=== PATIENT | female | born 1955 | race Caucasian/White ===

== ENCOUNTER 2020-09-19 11:07 | Emergency (ER) | payer MEDICARE, SELFPAY ==
[2020-09-19 11:36] VITALS: BP 133/76; PULSE 90; RESP 16; TEMP 36.8; O2SAT 94; BMI 21.0
--- NOTE | 2020-09-19 11:43 | XR_ITS ---
WS: [id number] Right first toe, 2 views, 09/19/2020 Clinical Data: Pain Comparison: None. Findings: There are no fractures or dislocations. The soft tissues are normal. The joint spaces are unremarkabl e. XR/XR toe RT min 2V [id number] Impression: Negative right first toe.
--- NOTE | 2020-09-19 11:44 | W.ED.EXTPRO ---
HPI - Extremity Problem General: Chief complaint: Extremity Problem,Nontraumatic Stated complaint: RIGHT BIG TOE PAIN Time Seen by Provider: 09/19/20 11:39 History of Present Illness: HPI Narrative: This patient is a 65-year-old female who presents to the emergency department with complaint of right great toe pain. Patient denies any states she woke up this morning and the joint between her foot and her right great toe appears to be pain little red. States it hurts to bend the toe. Patient denies injury. MD Complaint: joint pain Onset (ago): hour(s) Pain Consistency: constant Location: right and toe (Great toe) Associated symptoms: Deny chest pain, fever(s) or rash Review of Systems General: Reports: 10 or more systems reviewed and unremarkable except in HPI and below Const: Denies: fever(s), chills, body aches or fatigue Eyes: Denies: change in vision or blurry vision ENMT: Denies: throat pain, hoarseness or mouth pain Card: Denies: chest pain, palpitations, irregular heart rhythm, edema, swelling of feet/ankles or lightheadedness Resp: Denies: dyspnea, productive cough, non-productive cough, wheezing or pain on inspiration GI: Denies: abdominal pain, nausea or vomiting : Denies: flank pain, difficulty voiding, dysuria, urinary frequency, urinary urgency or urinary hesitancy Musc: Reports: joint pain; Denies: neck pain, back pain, extremity pain, extremity swelling, joint swelling, joint redness, joint warmth or limited range of motion Skin/Breast: Denies: rash, pruritus, erythema or skin tenderness Neuro: Denies: headache(s), numbness in extremities or weakness in extremities Psych: Denies: anxiety or depression [facility] ED PFSH: Social History Smoking and tobacco status: current every day smoker Alcohol intake: current Alcohol intake frequency: 0-2 Drinks per Day Substance/Drug Use: never Physical Exam Const: COMMON NORMALS: no acute distress, average body habitus, patient oriented x3, no limitations, healthy appearing, alert and well nourished HENMT: COMMON NORMALS: normocephalic, atraumatic, hearing grossly normal bilaterally, external ears normal, EAC's normal, TM's normal bilaterally, Normal external nose present, Normal nasal mucous membranes and turbinates present, moist oral mucous membranes, oropharynx normal, dentition normal and gingiva normal HEAD & SCALP: normocephalic and atraumatic NOSE: Normal external nose present and Normal nasal mucous membranes and turbinates present EXTERNAL EAR: Yes external ears normal EXTERNAL AUDITORY CANAL: EAC's normal TYMPANIC MEMBRANE: TM's normal bilaterally Neck/C-Spine: COMMON NORMALS: full ROM, no lymphadenopathy, supple, no meningeal signs, no JVD, Thyroid normal and No carotid bruits THYROID: Thyroid normal Chest: COMMONS NORMALS: normal inspection of the chest, normal palpation of entire chest wall, normal inspection of the breasts and normal palpation of the breasts Breast/axilla inspection: Yes normal inspection of the breasts BREAST/AXILLA PALPATION: Yes normal palpation of the breasts Resp: COMMON NORMALS: normal respiratory effort, No retractions, No use of accessory muscles, clear to auscultation bilaterally and percussion normal AUSCULTATION: clear to auscultation bilaterally PERCUSSION: percussion normal Cardio: COMMON NORMALS: no JVD, regular rate, regular rhythm, S1 normal heart sound present, S2 normal heart sound present, No gallops present (Cardio), No clicks present (Cardio), No murmurs present (Cardio), No rub (Cardio) and Peripheral pulses 2+ throughout RATE: regular rate RHYTHM: regular rhythm HEART SOUNDS: S1 normal heart sound present and S2 normal heart sound present PERIPHERAL PULSES: Peripheral pulses 2+ throughout GI: COMMON NORMALS: Normal to inspection, nondistended, normoactive bowel sounds present, Soft to palpation, non-tender, No hepatosplenomegaly present, no masses and no bruits PALPATION: Yes Soft to palpation and Yes No hepatosplenomegaly present : COMMON NORMALS: Yes no CVA tenderness BLADDER/KIDNEY EXAM: Yes no CVA tenderness Back/Pelvis: COMMON NORMALS: no CVA tenderness, thoracic and lumbar spine normal to inspection, no thoracic nor lumbar tenderness, thoraco-lumbar ROM normal and straight leg raise negative bilaterally Extremity: COMMON NORMALS: normal to inspection, full ROM, capillary refill normal, no joint enlargement, no clubbing, cyanosis or edema, no calf tenderness and no pedal edema RIGHT LOWER EXTREMITY: Yes foot & digits (Gouty tophi right great joint) Right foot and digits: Yes inspection, Yes palpation and Yes tendon exam Neuro: COMMON NORMALS: patient oriented x3 SENSORIUM/ORIENTATION: Yes alert MENINGEAL SIGNS: Yes no meningeal signs Course Reevaluation(s): Reevaluation #1: Concerning for gout right great toe. Patient be placed on allopurinol and NSAIDs. Hard soled shoe. Patient instructed to follow-up with PCP in 2 to 3 days. Discussed low purine diet with patient states understanding Time: 12:01 Vital Signs: Vital signs: Vital Signs Temperature 98.3 F 09/19/20 11:36 Pulse Rate 90 09/19/20 11:36 Respiratory Rate 16 09/19/20 11:36 Blood Pressure 133/76 09/19/20 11:36 Pulse Oximetry 94 09/19/20 11:36 MDM - Extremity (Nontraumatic) Imaging Data^: Xray Ortho: Attestation: I personally reviewed and interpreted this imaging study as follows: My impression: No acute fracture seen. Discharge Plan Discharge Patient Disposition: Home Clinical Impression: Gout Condition: Stable Prescriptions: New diclofenac sodium 75 mg tablet,delayed release (DR/EC) 75 mg PO BID PRN (Reason: pain) Qty: 20 RF: 0 allopurinol 100 mg tablet 100 mg PO BID Qty: 20 RF: 0 Discharge Orders: Discharge ED (Routine); Ordered 09/19/20 Ordered By: Darrell Peterson Referrals: Isa Root, [facility] [employer] [Primary Care Provider] - Discharge Diet: Advance as tolerated Discharge Activity: Resume usual activity Patient Instructions: Opioid Safety Activity Restrictions/Additional Instructions: Rest ice elevate as needed. Take medications as instructed. Low purine diet. Coding Level of Care Code ED Flexographic Press Helper for Marcus Fwalexandra Exam Comprehensive
[2020-09-19 12:34] VITALS: BP 149/67; PULSE 82; O2SAT 98
== END 2020-09-19 12:35 | disposition home or self-care (01) ==
PROVIDERS: Emergency Provider Emergency Medicine; PCP Nurse Practitioner Family
DX: M10.9 Gout, unspecified (principal); F17.210 Nicotine dependence, cigarettes, uncomplicated
CPT/HCPCS: 73660; 99282

== ENCOUNTER 2021-10-09 17:10 | Emergency (ER) | payer MEDICARE, MEDICAID, SELFPAY ==
[2021-10-09] VITALS (7 sets, daily range): BP systolic 132–167; BP diastolic 70–89; PULSE 75–105; RESP 18–96; TEMP 37; O2SAT 18–98; BMI 19.3
--- NOTE | 2021-10-09 19:43 | ECG_ITS ---
[facility] Test Date: 2021-10-09 Pat Name: Cherelle Bustos Department: Room: Gender: Female [employer] Operator: : 1955 Requested By: Jonathon Roque Order Number: [id number] Patricia MD: López Cardoso M.D. Measurements Intervals [place] Rate: 77 P: 71 TX: 136 QRS: 70 QRSD: 77 T: 74 QT: 382 QTc: 433 Interpretive Statements SINUS RHYTHM SEPTAL MYOCARDIAL INFARCTION , PROBABLY OLD [40+ ms Q WAVE IN V1/V2] Compared to ECG 03/10/2017 02:05:17 No significant changes Electronically Signed On 10-10-2021 18:57:13 CDT by López Cardoso M.D. [email or web address]
--- NOTE | 2021-10-09 19:44 | CTR_ITS ---
PROCEDURE INFORMATION: Exam: CT Head Without Contrast Exam date and time: 10/09/2021 7:55 PM Age: 66 years old Clinical indication: Dizziness; Patient HX: Numbness and tingling in pentecostalism and above lt lip TECHNIQUE: Imaging protocol: Computed tomography of the head without contrast. Radiation optimization: All CT scans at this facility use at least one of these dose optimization techniques: automated exposure control; mA and/or kV adjustment per patient size (includes targeted exams where dose is matched to clinical indication); or iterative reconstruction. COMPARISON: CT head wo con* [id number] 03/10/2017 12:21 AM RADIATION DOSE METRICS: Total DLP (mGy-cm): 714.37 FINDINGS: Brain: Normal. No hemorrhage. Unremarkable white matter. No mass effect. Cerebral ventricles: No ventriculomegaly. Paranasal sinuses: Visualized sinuses are unremarkable. No fluid levels. Mastoid air cells: Visualized mastoid air cells are well aerated. Bones/joints: Unremarkable. No acute fracture. Soft tissues: Unremarkable. CT/CT head wo con* [id number] IMPRESSION: No acute intracranial abnormality.
--- NOTE | 2021-10-09 19:54 | ED_ITS ---
HPI - Dizziness General: Chief Complaint: Dizziness Stated Complaint: Jaw pain, head & Nech pain on right side, dizzy Time Seen by Provider: 10/09/21 19:43 History of Present Illness: HPI Narrative: 66-year-old female comes in today with complaints of right sided neck and jaw pain with headache. Patient reports symptoms on and off for over a month now. Patient was concerned due to some blurring of the vision today. Patient is alert and responds appropriate to questions. Patient appears nontoxic. No focal neural deficits are noted. NIH stroke scale is 0. Associated symptoms: Reports headache(s); Denies chest pain, nausea or vomiting Review of Systems General: Reports: 10 or more systems reviewed and unremarkable except in HPI and below Const: Denies: fever(s) Eyes: Reports: blurry vision ENMT: Reports: throat pain and dry mouth Card: Denies: chest pain Resp: Denies: dyspnea GI: Denies: nausea or vomiting : Denies: difficulty voiding Musc: Reports: neck pain Skin/Breast: Denies: rash Neuro: Reports: headache(s) and dizziness [facility] ED PFSH: Social History Smoking and tobacco status: current every day smoker Alcohol intake: current Alcohol intake frequency: 0-2 Drinks per Day Physical Exam Const: COMMON NORMALS: no acute distress and alert HENMT: COMMON NORMALS: normocephalic, atraumatic, TM's normal bilaterally and Normal nasal mucous membranes and turbinates present HEAD & SCALP: normocephalic and atraumatic NOSE: Normal nasal mucous membranes and turbinates present TYMPANIC MEMBRANE: TM's normal bilaterally MOUTH: Normal oral and palatal mucosa present THROAT: posterior oropharynx normal Neck/C-Spine: COMMON NORMALS: full ROM CAROTIDS: No Carotid tenderness present Resp: COMMON NORMALS: normal respiratory effort and clear to auscultation bilaterally AUSCULTATION: clear to auscultation bilaterally Cardio: COMMON NORMALS: regular rate and regular rhythm RATE: regular rate RHYTHM: regular rhythm GI: COMMON NORMALS: Soft to palpation and non-tender PALPATION: Yes Soft to palpation Back/Pelvis: COMMON NORMALS: thoracic and lumbar spine normal to inspection Extremity: COMMON NORMALS: normal to inspection Neuro: SENSORIUM/ORIENTATION: Yes alert Skin: COMMON NORMALS: no rashes or lesions noted NARRATIVE SKIN EXAM: Mild senile purpura GENERAL SKIN EXAM: no rashes or lesions noted Course Vital Signs: Vital signs: Vital Signs Temperature 98.6 F 10/09/21 17:16 Pulse Rate 88 10/09/21 20:30 Respiratory Rate 18 10/09/21 20:30 Blood Pressure 167/70 10/09/21 20:30 Pulse Oximetry 92 10/09/21 20:30 MDM - Dizziness Medical Decision Making 66-year-old female comes in today with complaints of right-sided headache. Patient reports it starts in the back of her neck and goes up into her right side of her head. Patient also reports some discomfort to her jaw. Patient is a dentulous. Patient reports some chronic medical problems with use of thyroid medications. Patient does drink alcohol occasionally and also smokes tobacco. On exam no focal neurodeficits were noted. Patient moves neck without difficulty. Respirations are even lungs are clear to auscultation. Abdomen soft nontender. Differential diagnosis includes but not limited to migraine headaches, carotid stenosis, intracranial mass. CT of the head was un remarkable. Patient was treated for headache with headache cocktail including Reglan, diphenhydramine, dexamethasone, and ketorolac. Recommend patient follow-up with primary care as needed. Case management was requested for referral to neurology for further evaluation. Lab Data : 10/09/21 20:06 10/09/21 20:[address] 10/09/21 19:44 IMPRESSION: No acute intracranial abnormality. Laboratory Results WBC 10.1 10^3/uL (4.0-10.0) H 10/09/21 20:06 RBC 4.10 10^6/uL (4.1-5.3) 10/09/21 20:06 Hgb 13.7 g/dL (11.5-15.3) 10/09/21 20:06 Hct 39.2 % (37.0-47.0) 10/09/21 20:06 MCV 95.6 fl (81-99) 10/09/21 20:06 MCH 33.4 pg (28.0-34.0) 10/09/21 20:06 MCHC 34.9 g/dL (30.0-36.0) 10/09/21 20:06 RDW 12.9 % (12.1-15.1) 10/09/21 20:06 Plt Count 246 10^3/cmm (130-400) 10/09/21 20:06 MPV 10.2 fL (7.4-10.4) 10/09/21 20:06 Neut % (Auto) 50.5 % 10/09/21 20:06 Lymph % (Auto) 37.0 % 10/09/21 20:06 [place] % (Auto) 9.3 % 10/09/21 20:06 Eos % (Auto) 2.3 % 10/09/21 20:06 Baso % (Auto) 0.6 % 10/09/21 20:06 Neut # (Auto) 5.10 10^3/uL (1.8-7.7) 10/09/21 20:06 Lymph # (Auto) 3.7 10^3/uL (0.8-4.8) 10/09/21 20:06 [place] # (Auto) 0.9 10^3/uL (0.2-0.9) 10/09/21 20:06 Eos # (Auto) 0.2 10^3/uL (0.0-0.8) 10/09/21 20:06 Baso # (Auto) 0.1 10^3/uL (0.0-0.1) 10/09/21 20:06 Nucleated RBC % (auto) 0 % 10/09/21 20:06 Nucleated RBCs # 0.0 /100WBC 10/09/21 20:06 Sodium 139 mmol/L (136-145) 10/09/21 20:06 Potassium 4.1 mmol/L (3.5-5.1) 10/09/21 20:06 Chloride 102 mmol/L (98-107) 10/09/21 20:06 Carbon Dioxide 24 mmol/L (22-29) 10/09/21 20:06 Anion Gap 17.1 (5-19) 10/09/21 20:06 BUN 9 mg/dL (8-23) 10/09/21 20:06 Creatinine 0.7 mg/dL (0.5-0.9) 10/09/21 20:06 GFR Calculation 83.7 mL/min (90-130) L 10/09/21 20:06 Glucose 90 mg/dL (65-115) 10/09/21 20:06 Calculated Osmolality 286 mOsm/kg (285-295) 10/09/21 20:06 Calcium 9.8 mg/dL (8.5-10.5) 10/09/21 20:06 Total Bilirubin 0.2 mg/dL (0.15-1.2) 10/09/21 20:06 AST 30 U/L (0-32) 10/09/21 20:06 ALT 21 U/L (0-33) 10/09/21 20:06 Alkaline Phosphatase 84 IU/L (35-105) 10/09/21 20:06 Troponin T Gen 5 ng/L 6 ng/L (0-10) 10/09/21 20:06 C-Reactive Protein 3.0 mg/L (0.0-4.9) 10/09/21 20:06 Total Protein 7.4 g/dL (6.6-8.7) 10/09/21 20:06 Albumin 4.3 g/dL (3.5-5.2) 10/09/21 20:06 Globulin 3.1 g/dL (1.3-4.6) 10/09/21 20:06 Urine Color Yellow (Yellow) 10/09/21 20:07 Urine Appearance Clear (CLEAR) 10/09/21 20:07 Urine pH 6.5 (5-7) 10/09/21 20:07 Ur Specific [place] 1.010 (1.005-1.030) 10/09/21 20:07 Urine Protein Neg (Negative) 10/09/21 20:07 Urine Glucose (UA) Norm (Normal) 10/09/21 20:07 Urine Ketones Negative (Negative) 10/09/21 20:07 Urine Blood Neg (Negative) 10/09/21 20:07 Urine Nitrate Negative (Negative) 10/09/21 20:07 Urine Bilirubin Neg (Negative) 10/09/21 20:07 Urine Urobilinogen Norm mg/dL (Negative) 10/09/21 20:07 Ur Leukocyte Esterase Negative (Negative) 10/09/21 20:07 EKG Data EKG 1: EKG interpretation date: 10/09/21 EKG interpretation time: 20:25 Prior EKG tracings: available for review Interpretation: EKG shows a sinus rhythm with a regular rate at [address] elevation or ectopy is noted. No significant changes are noted from prior exam 03/10/2017. Discharge Plan Discharge Patient Disposition: Home Clinical Impression: Headache Qualifiers: Headache type: unspecified Headache chronicity pattern: unspecified pattern Intractability: not intractable Qualified Code(s): R51.9 - Headache, unspecified Condition: Stable Prescriptions: No Action diclofenac sodium 75 mg tablet,delayed release (DR/EC) 75 mg PO BID PRN (Reason: pain) Qty: 20 0RF allopurinol 100 mg tablet 100 mg PO BID Qty: 20 0RF Discharge Orders: Discharge ED (Routine); Ordered 10/09/21 Ordered By: Jonathon Morales Referrals: Isa Root, HORTICULTURE SUPERINTENDENT [Primary Care Provider] - Discharge Diet: Usual diet Discharge Activity: Increase activity as tolerated Patient Instructions: General Headache (ED) Activity Restrictions/Additional Instructions: Drink plenty of fluids. Continue with routine medications as directed. Follow- up with primary care to discuss further options. I have placed a request for you to be referred to neurology for further evaluation of your headaches. Return to ER for new concerns. Coding Level of Care Code ED Commissioning Manager for Marcus Fwalexandra Exam Comprehensive
[2021-10-09 20:13] LABS: Add Urine Microscopic? NO; Charge for UA Resulting for Rev
[2021-10-09 20:22] LABS: Basophils # 0.1 10^3/uL (0.0-0.1); Basophils % 0.6 %; Eosinophils # 0.2 10^3/uL (0.0-0.8); Eosinophils % 2.3 %; Hematocrit 39.2 % (37.0-47.0); Hemoglobin 13.7 g/dL (11.5-15.3); Lymphocytes # 3.7 10^3/uL (0.8-4.8); Mean Corpuscular HGB Conc 34.9 g/dL (30.0-36.0); Mean Corpuscular Hemoglobin 33.4 pg (28.0-34.0); Mean Corpuscular Volume 95.6 fl (81-99); Mean Platelet Volume 10.2 fL (7.4-10.4); Monocytes # 0.9 10^3/uL (0.2-0.9); Monocytes % 9.3 %; Neutrophils % 50.5 %; Nucleated Red Blood Cells % 0 %; Platelet Count 246 10^3/cmm (130-400); Red Cell Distribution Width 12.9 % (12.1-15.1); White Blood Count 10.1 10^3/uL (4.0-10.0)
[2021-10-09 20:28] LABS: Blood Urine Neg (Negative); Glucose Urine UA Norm (Normal); Ketones Urine Negative (Negative); Nitrate Urine Negative (Negative); Protein Urine Neg (Negative); Urine Appearance Clear (CLEAR); Urine Color Yellow (Yellow); pH Urine 6.5 (5-7)
[2021-10-09 20:29] LABS: Bilirubin Urine Neg (Negative); Leukocyte Esterase Urine Negative (Negative); Urobilinogen Urine Norm (Negative)
[2021-10-09 20:37] LABS: Alanine Aminotransferase 21 U/L (0-33); Albumin Level 4.3 g/dL (3.5-5.2); Alkaline Phosphatase 84 IU/L (35-105); Aspartate Amino Transferase 30 U/L (0-32); Blood Urea Nitrogen 9 mg/dL (8-23); Calcium 9.8 mg/dL (8.5-10.5); Carbon Dioxide 24 mmol/L (22-29); Chloride 102 mmol/L (98-107); Globulin 3.1 g/dL (1.3-4.6); Glomerular Filtration Rate 83.7 mL/min (90-130); Glucose 90 mg/dL (65-115); Osmolality Calculated 286 mOsm/kg (285-295); Sodium 139 mmol/L (136-145); Total Bilirubin 0.2 mg/dL (0.15-1.2); Total Protein 7.4 g/dL (6.6-8.7)
[2021-10-09 20:38] LABS: Troponin T (5th) Once 6 ng/L (0-10)
[2021-10-09 20:39] LABS: Anion Gap 17.1 (5-19); Potassium 4.1 mmol/L (3.5-5.1)
[2021-10-09] MEDS: dexamethasone 4 mg/mL INJ 8 MG IVP (21:22)
[2021-10-09] MEDS: metoclopramide 5 mg/mL SDV 2 mL 10 MG IVP (21:22)
[2021-10-09] MEDS: ketorolac 30 mg/mL INJ 15 MG IVP (21:22)
[2021-10-09] MEDS: diphenhydrAMINE 50 mg/mL SDV 1mL 12.5 MG IVP (21:23)
[2021-10-09] MEDS: sodium chloride 0.9% 250 ML IV (21:23)
--- NOTE | 2021-10-15 08:01 | DCPLANNER ---
Addendum entered by Kenna Phillips 11/04/21 13:46: Patient had a follow up appointment scheduled for 11.04.[address] Boone - patient did attend appointment. Original Note: manager control had message to schedule a follow up appointment for patient with neurology. manager control sent patients information to the front office staff at neurology. Patients information will be printed and reviewed. Clinic will call patient with appointment information.
== END 2021-10-09 21:36 | disposition home or self-care (01) ==
PROVIDERS: Emergency Provider Nurse Practitioner Family; PCP Nurse Practitioner Family
DX: R51.9 Headache, unspecified (principal); F17.210 Nicotine dependence, cigarettes, uncomplicated
CPT/HCPCS: 70450; 80053; 81003; 84484; 85025; 86140; 93005; 96361; 96374; 96375; 99284; J1100; J1200; J1885; J2765; J7050

== ENCOUNTER → 2021-11-04 09:37 | Outpatient (BNVA) | payer MEDICARE, MEDICAID, SELFPAY | PROVIDERS: PCP Nurse Practitioner Family; Visit Provider Specialist | DX: G43.711 Chronic migraine without aura, intractable, with status migrainosus (principal); R20.0 Anesthesia of skin; R20.2 Paresthesia of skin; J44.9 Chronic obstructive pulmonary disease, unspecified; R01.1 Cardiac murmur, unspecified; F17.210 Nicotine dependence, cigarettes, uncomplicated | CPT/HCPCS: 82607; 84443; 85651; 86038; 99204; 99205 ==

== ENCOUNTER → 2022-01-02 13:10 | Outpatient (BNVA) | payer MEDICARE, MEDICAID, SELFPAY | PROVIDERS: PCP Family Medicine; Visit Provider Internal Medicine Cardiovascular Disease | DX: R01.1 Cardiac murmur, unspecified (principal); R22.0 Localized swelling, mass and lump, head; J43.1 Panlobular emphysema; G43.711 Chronic migraine without aura, intractable, with status migrainosus; E03.9 Hypothyroidism, unspecified; F17.219 Nicotine dependence, cigarettes, with unspecified nicotine-induced disorders | CPT/HCPCS: 99204 ==

== ENCOUNTER → 2022-01-23 11:43 | Outpatient (BNVA) | payer MEDICARE, MEDICAID, SELFPAY | PROVIDERS: PCP Family Medicine; Visit Provider Family Medicine | DX: Z13.6 Encounter for screening for cardiovascular disorders (principal) | CPT/HCPCS: 80053; 80061; 85025 ==

== ENCOUNTER 2022-02-25 12:47 | Outpatient (CLI) | payer MEDICARE, MEDICAID, SELFPAY ==
--- NOTE | 2022-02-25 13:00 | CT_ITS ---
WS: [id number] CT NECK TECHNIQUE: Contrast-enhanced CT of the neck with coronal and sagittal reformatted images. CLINICAL INFORMATION: ABSCESS OF SALIVARY GLAND/LOCALIZED SWELLING,MASS LUMP COMPARISON: None. DLP: 168.[address] scans at [facility] use at least one of these dose optimization techniques: automated e xposure control; mA and/or kV adjustment per patient size (includes targeted exams where dose is matc hed to clinical indication); or iterative reconstruction. FINDINGS: Palpable marker overlying the RIGHT masseter. Normal underlying accessory parotid tissue and normal u nderlying masseter. No evidence of abnormal underlying subcutaneous mass or lesion. Parotid glands ar e normal in appearance. Normal submandibular glands. Normal posterior nasopharynx. Normal parapharyng eal fat. No evidence of supraglottic or glottic mass. Aortic arch calcification. Calcification at the great vessel origins. 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 This can be further evaluated with CTA. Fibrosis in the lung apices. Paranasal sinuses are well aerated. Partial opacification RIGHT mastoid tip. Normal posterior nasopha rynx. Normal parapharyngeal fat. No evidence of supraglottic or glottic mass. Normal piriform sinus. Normal subglottic airway. Advance d spondylitic changes cervical spine with anterolisthesis C3 on C4 measuring 4 mm. Moderate carotid b ulb calcification. CT/CT neck w con* [id number] IMPRESSION: 1. Palpable marker overlying the RIGHT masseter and accessory RIGHT parotid gl and tissue. No evidence of underlying mass or lesion. No suspicious findings in this location. 2. Salivary glands are otherwise normal in appearance. 3. No cervical lymphadenopathy. 4. No evidence of supraglottic or glottic mass. 5. Moderate to severe calcification at the great vessel origins with occlusion of the LEFT subclavian origin. This can be further evaluated with CTA. 6. Grade 1 anterolisthesis C3 on C4 measuring 4 mm. 7. Moderate spondylitic changes cervical spine.
[2022-02-25] MEDS: iohexol 350 mg/mL 100 mL Btl IV (13:24)
== END 2022-02-25 12:48 | disposition home or self-care (01) ==
LOC: RAD 12:48
PROVIDERS: PCP Family Medicine; Visit Provider Specialist
DX: K11.3 Abscess of salivary gland (principal); K11.8 Other diseases of salivary glands; R22.1 Localized swelling, mass and lump, neck
CPT/HCPCS: 70491; Q9967

== ENCOUNTER 2022-03-21 07:06 | Outpatient (CLI) | payer MEDICARE, MEDICAID, SELFPAY ==
--- NOTE | 2022-03-21 07:18 | MR_ITS ---
WS: [id number] MRA CAROTID ARTERIES HISTORY: M26.621 - Arthralgia of right temporomandibular joint COMPARISON: None available. TECHNIQUE: MRA is performed with intravenous gadolinium. MIP and source images are reviewed. Right: Poor visualization origin and proximal RIGHT CCA. No high-grade obstruction at the bifurcation . External carotid artery is patent. Left: Proximal carotid arteries not adequately visualized. Cervical portion is normal. No high-grade stenosis. External carotid artery patent. Vertebral Arteries: Dominant RIGHT vertebral artery. No stenosis. The very proximal most aspect of th e vertebral artery is not well visualized. Very small caliber or hypoplastic or absent LEFT vertebral artery. Very small caliber vertebral artery is identified distally. Origin of the LEFT vertebral art tessie is not visible. MR/MR angio neck wo con [id number] IMPRESSION: 1. No significant cervical carotid artery stenosis at the bifurcations. 2. Nondiagnostic examination of the aortic arch and origin of the great vessel s. 3. Dominant RIGHT vertebral artery. Intermittently visualized and small calibe r LEFT vertebral artery. Recommend further evaluation by CT angiogram.
== END 2022-03-21 07:07 | disposition home or self-care (01) ==
PROVIDERS: PCP Family Medicine; Visit Provider Specialist
DX: M26.621 Arthralgia of right temporomandibular joint (principal)
CPT/HCPCS: 70547

== ENCOUNTER 2022-04-02 10:46 | Outpatient (CLI) | payer MEDICARE, MEDICAID, SELFPAY ==
--- NOTE | 2022-04-02 11:46 | USCV_ITS ---
Cherelle Bustos Age: 66 Gender: F : 1955 Exam Date: 04/02/2022 12:20 Ordering Phys: Marissa Retana MD ([email or web address]) Technologist: BRICE [place] [facility] [place]: SHORTNESS OF BREATH, H/O CVA BP: 126 / 64 HR: 74 Rhythm: Sinus Technical Quality: Adequate MEASUREMENTS (Male / Female) Normal Values 2D ECHO LVOT Diameter 2.0 cm LV Ejection Fraction MOD 2C 78.0 % LV Ejection Fraction 2C AL 78.2 % LA Diameter 2.1 cm LA Width 3.4 cm LA Height 3.5 cm RA Width 3.2 cm RA Height 3.2 cm Aorta at Sinotubular Diameter 2.0 cm IVC Diameter 1.2 cm M-MODE Aortic Annulus Diameter 2.7 cm LA Ao Ratio MM 0.6 MV E Point Septal Separation 0.3 cm DOPPLER AV Peak Velocity 230.7 cm/s LVOT Peak Velocity 85.0 cm/s AV Area Cont Eq vti 1.3 cm squared AV Area Cont Eq pk 1.2 cm squared MV Peak Velocity 109.0 cm/s MV Area PHT 3.7 cm squared Mitral E to A Ratio 0.8 MV E' Velocity 50.5 cm/s Mitral E to MV E' Ratio 9.9 Mitral E to LV E' Lateral Ratio 9.4 Mitral E to LV E' Septal Ratio 10.5 TR Peak Velocity 251.3 cm/s TR Peak Gradient 25.3 mmHg TR Mean Velocity 199.3 cm/s TR Mean Gradient 17.3 mmHg TR Velocity Time Integral 79.7 cm TV Peak E Velocity 57.0 cm/s Right Atrial Pressure 3.0 mmHg Pulmonary Artery Systolic Pressu 28.3 mmHg PV Peak Velocity 183.0 cm/s RV Acceleration Time 0.1 s RV Ejection Time 0.3 s RV AcT/ET 0.5 FINDINGS Left Ventricle Normal left ventricular size, systolic function and wall thickness, with no regional wall motion abnormalities. Left ventricular ejection fraction is estimated at 70 -75 %. Normal diastolic function. Right Ventricle Normal right ventricular size and systolic function. Right ventricular systolic pressure 28.3 mmHg. Right Atrium Normal right atrial size. No evidence of intracardiac shunt by agaitated saline (bubble) study. Left Atrium Normal left atrial size. Mitral Valve Mild mitral annular calcification. No mitral valve stenosis. Trace mitral valve regurgitation. Aortic Valve Aortic valve not well visualized. No aortic valve stenosis. No aortic valve regurgitation. Tricuspid Valve Structurally normal tricuspid valve. No tricuspid valve stenosis. Trace tricuspid valve regurgitation. Pulmonic Valve Structurally normal pulmonic valve. No pulmonary valve stenosis. Pericardium No pericardial effusion. Aorta Normal size aortic root and proximal ascending aorta. IVC Normal IVC dimension with >50% respiratory change of the inferior vena cava. CONCLUSIONS 1. Normal left ventricular size, systolic function and wall thickness, with no regional wall motion abnormalities. Left ventricular ejection fraction is estimated at 70 -75 %. Normal diastolic function. 2. Normal right ventricular size and systolic function. 3. No evidence of intracardiac shunt by agaitated saline (bubble) study. 4. No prior similar studies [facility]. Marissa Retana MD (Electronically Signed) Final Date: 03 April 2022 17:24 S
== END 2022-04-02 10:47 | disposition home or self-care (01) ==
LOC: RAD 10:46
PROVIDERS: PCP Family Medicine; Visit Provider Internal Medicine Cardiovascular Disease
DX: R01.1 Cardiac murmur, unspecified (principal); R06.02 Shortness of breath; Z86.73 Personal history of transient ischemic attack (TIA), and cerebral infarction without residual deficits
CPT/HCPCS: C8929

== ENCOUNTER → 2022-04-08 12:59 | Outpatient (BNVA) | payer MEDICARE, MEDICAID, SELFPAY | PROVIDERS: PCP Family Medicine; Visit Provider Internal Medicine Cardiovascular Disease | DX: R01.1 Cardiac murmur, unspecified (principal); J43.1 Panlobular emphysema; G43.711 Chronic migraine without aura, intractable, with status migrainosus; E03.9 Hypothyroidism, unspecified; F17.219 Nicotine dependence, cigarettes, with unspecified nicotine-induced disorders | CPT/HCPCS: 99214 ==

== ENCOUNTER → 2022-05-06 11:52 | Outpatient (BNVA) | payer MEDICARE, MEDICAID, SELFPAY | PROVIDERS: PCP Family Medicine; Visit Provider Specialist | DX: G43.711 Chronic migraine without aura, intractable, with status migrainosus (principal); F17.219 Nicotine dependence, cigarettes, with unspecified nicotine-induced disorders; R22.0 Localized swelling, mass and lump, head; G44.221 Chronic tension-type headache, intractable | CPT/HCPCS: 99214 ==

== ENCOUNTER → 2022-11-04 14:14 | Outpatient (BNVA) | payer MEDICARE, MEDICAID, SELFPAY | PROVIDERS: PCP Family Medicine; Visit Provider Specialist | DX: G43.711 Chronic migraine without aura, intractable, with status migrainosus (principal); F17.210 Nicotine dependence, cigarettes, uncomplicated | CPT/HCPCS: 99214 ==

== ENCOUNTER 2022-12-05 11:49 | Outpatient (CLI) | payer MEDICARE, MEDICAID, SELFPAY ==
--- NOTE | 2022-12-05 11:56 | MM_ITS ---
WS: [id number] BILATERAL 3D TOMOSYNTHESIS DIGITAL SCREENING MAMMOGRAPHY WITH CAD CLINICAL INFORMATION: screening mammogram HISTORY: Screening mammogram. No current complaints. COMPARISON: None. TECHNIQUE: Bilateral CC and MLO views. FINDINGS: Scattered fibroglandular densities bilaterally. No suspicious focal mass, asymmetry, calcifications, or architectural distortion. No evidence of malignancy. Incidental punctate and lucent centered calci fications. IMPRESSION: MM/[place] [id number] BI-RADS: 2-Benign FOLLOW UP: 1 Year Follow-up Recommend return to annual screening mammography.
== END 2022-12-05 11:50 | disposition home or self-care (01) ==
PROVIDERS: PCP Family Medicine; Visit Provider Family Medicine
DX: Z12.31 Encounter for screening mammogram for malignant neoplasm of breast (principal)
CPT/HCPCS: 77063; 77067

== ENCOUNTER 2022-12-09 12:22 | Outpatient (CLI) | payer MEDICARE, MEDICAID, SELFPAY ==
--- NOTE | 2022-12-09 12:45 | MR_ITS ---
WS: [id number] MRA HEAD TECHNIQUE: Axial 3-D TOF images obtained with axial images and axial, sagittal, and coronal 2-D refor matted images. CLINICAL INFORMATION: G43.711 - Chronic migraine without aura, intractable, wit... COMPARISON: CT head 10/09/2021 FINDINGS: Distal vertebral arteries are patent. Basilar artery is patent. Normal vascularity to the [employer] territ ory bilaterally. Both ICAs are patent at the skull base. Normal vascularity to the ALESSANDRA and MCA territories bilaterally . No evidence of proximal flow-limiting stenosis or aneurysm. IMPRESSION: Normal intracranial MRA.
== END 2022-12-09 12:23 | disposition home or self-care (01) ==
PROVIDERS: PCP Family Medicine; Visit Provider Specialist
DX: G43.711 Chronic migraine without aura, intractable, with status migrainosus (principal)
CPT/HCPCS: 70544

== ENCOUNTER 2023-01-08 13:03 | Outpatient (CLI) | payer MEDICARE, MEDICAID, SELFPAY ==
--- NOTE | 2023-01-08 13:15 | CT_ITS ---
WS: [id number] LDCT LUNG CANCER SCREENING HISTORY: J43.1 - Panlobular emphysema TECHNIQUE: Axial imaging performed from the apices to 1 cm below the costophrenic angles. Coronal and sagittal reformats are submitted with axial MIP series. All CT scans at [facility] use at least one of these dose optimization techniques: automated exposure control; mA and/or kV adjustment per patient size (includes targeted exams where dose is matched to clinical indication); or iterativ e reconstruction. DLP: 52.37 mGy.cm DIvol: Mean CTDIvol: 0.70 (mGy) COMPARISON: None available. Diagnostic quality: Satisfactory Lungs: Mild hyperinflation. Benign granuloma RIGHT lower lobe adjacent to the fissure. Groundglass no dule measuring 11 mm central LEFT upper lobe. No additional nodule or mass. No pneumonia. No endobron chial lesions. Heart: Normal size heart. Extensive [place] coronary artery calcifications. Involvement of all 3 the m ain coronary arteries. No effusion.. Other findings: Moderate atherosclerotic plaque within the thoracic aorta extending into the great ve ssels. Pulmonary arteries mildly prominent. No adenopathy. Small hiatal hernia. Incompletely visualiz ed abdominal aortic aneurysm with a maximum diameter of 4.8 cm. IMPRESSION: CT/CT lung screening 79009 LUNG-RADS: 2S-Benign Appearance or Behavior with Significant Findings FOLLOW UP: 12 Month: Continue annual screening with LDCT OTHER FINDINGS (S MODIFIER): Abdominal aortic aneurysm. Incompletely included o n this examination. Maximum diameter 4.8 cm. Recommend follow-up CT angiogram a bdominal aorta.
== END 2023-01-08 13:04 | disposition home or self-care (01) ==
LOC: RAD 13:04
PROVIDERS: PCP Family Medicine; Visit Provider Specialist
DX: Z12.2 Encounter for screening for malignant neoplasm of respiratory organs (principal); J43.1 Panlobular emphysema
CPT/HCPCS: 71271

== ENCOUNTER → 2023-04-16 15:00 | Outpatient (BNVA) | payer MEDICARE, MEDICAID, SELFPAY | PROVIDERS: PCP Family Medicine; Visit Provider Family Medicine | DX: Z13.6 Encounter for screening for cardiovascular disorders (principal); E03.9 Hypothyroidism, unspecified | CPT/HCPCS: 80053; 80061; 84443; 85025 ==

== ENCOUNTER → 2023-05-19 12:45 | Outpatient (BNVA) | payer MEDICARE, MEDICAID, SELFPAY | PROVIDERS: PCP Family Medicine; Visit Provider Internal Medicine Cardiovascular Disease | DX: J43.1 Panlobular emphysema (principal); G43.711 Chronic migraine without aura, intractable, with status migrainosus; F17.219 Nicotine dependence, cigarettes, with unspecified nicotine-induced disorders | CPT/HCPCS: 99214 ==

== ENCOUNTER → 2024-07-22 13:53 | Outpatient (BNVA) | payer MEDICARE, MEDICAID, SELFPAY | PROVIDERS: PCP Family Medicine; Visit Provider Family Medicine | DX: Z13.6 Encounter for screening for cardiovascular disorders (principal); E03.9 Hypothyroidism, unspecified | CPT/HCPCS: 80053; 80061; 84439; 84443; 85025 ==

== ENCOUNTER → 2025-02-06 10:45 | Outpatient (BNVA) | payer MEDICARE, MEDICAID, SELFPAY | PROVIDERS: PCP Family Medicine; Visit Provider Family Medicine | DX: E03.9 Hypothyroidism, unspecified (principal); Z13.6 Encounter for screening for cardiovascular disorders | CPT/HCPCS: 84439; 84443; 85025 ==

== ENCOUNTER → 2025-02-07 | Outpatient (BNVA) | payer MEDICARE, MEDICAID, SELFPAY | PROVIDERS: PCP Family Medicine; Visit Provider Family Medicine | DX: E53.8 Deficiency of other specified B group vitamins (principal); D53.9 Nutritional anemia, unspecified | CPT/HCPCS: 82607 ==

== ENCOUNTER 2025-02-28 11:35 | Outpatient (CLI) | payer MEDICARE, MEDICAID, SELFPAY ==
--- NOTE | 2025-02-28 12:15 | CT_ITS ---
WS: [id number] CT angio abdomen pelvis [id number] REASON FOR EXAM: AAA TECHNIQUE: Coronal and sagittal 2-D and MIP reformations. IV CONTRAST ADMINISTERED: 100 mL of Omnipaque 350. TOTAL EXAM DLP: 157.[address] scans at [facility] use at least one of these dose optimization techniques: automated exposure control; mA and/or kV adjustment per patient size (includes targeted exams where dose is matched to clinical indication); or iterative reconstruction. TECHNIQUE: Multiple axial images were obtained through the abdomen and pelvis after intravenous contrast enhancement in the arterial phase. Coronal and sagittal reconstructions were obtained. FINDINGS: Nonvascular findings: Mild dilatation of the pancreatic duct and the common bile duct. There may be an annular pancreas, however the mass effect of the abdominal aortic aneurysm and tortuous ectatic aorta significantly distort the anatomy of the upper abdomen. A single gallbladder calculus is identified. No other significant nonvascular abnormality noted. Vascular findings. Tortuous ectatic upper abdominal aorta with calcified plaque. Moderate stenosis at the origins of the celiac, superior mesenteric, and renal arteries. Single renal arteries with origins proximal to the proximal abdominal aortic aneurysm neck. Abdominal aortic aneurysm. From the proximal neck of the aneurysm to the aortic bifurcation is 10 cm. The AP dimension is 4.6 cm. The transverse dimension is 4.5 cm. 3 to 5 mm of circumferential mural clot. There is significant calcified plaque in both common iliac arteries which demonstrate areas of moderate stenosis. The external iliacs and common femoral arteries are patent without significant stenosis. CT/CT angio abdomen pelvis [id number] IMPRESSION: Nonvascular findings as above. Stenoses of the major branches of the upper abdominal aorta as above. Abdominal aortic aneurysm as described above. Areas of common iliac stenosis as above.
[2025-02-28 12:39] LABS: Blood Urea Nitrogen 10 mg/dL (8-23)
[2025-02-28] MEDS: iohexol 350 mg/mL 500 mL Btl (per mL) IV (12:48)
== END 2025-02-28 11:36 | disposition home or self-care (01) ==
PROVIDERS: PCP Family Medicine; Visit Provider Family Medicine
DX: I71.40 Abdominal aortic aneurysm, without rupture, unspecified (principal); K86.89 Other specified diseases of pancreas; R93.89 Abnormal findings on diagnostic imaging of other specified body structures; K80.20 Calculus of gallbladder without cholecystitis without obstruction; I70.0 Atherosclerosis of aorta; I70.1 Atherosclerosis of renal artery; K55.1 Chronic vascular disorders of intestine; I70.8 Atherosclerosis of other arteries
CPT/HCPCS: 74174; 82565; 84520